=== PATIENT | male | born 1995 ===

== ENCOUNTER 2017-04-19 23:11 | Emergency (ER) | payer SELFPAY ==
--- NOTE | 2017-04-19 23:52 | ED PDOC ---
HPI: SOB/CHF/COPD Time Seen by Provider: 04/19/17 23:15 Chief Complaint (Nursing): Shortness Of Breath Chief Complaint (Provider): Shortness of breath History Per: Patient History/Exam Limitations: no limitations Onset/Duration Of Symptoms: Days Current Symptoms Are (Timing): Still Present Associated Symptoms: denies: Fever, Chills, Chest Pain Additional Complaint(s): 22yo male with no past medical history, presents to ED for evaluation of shortness of breath for the past couple days. Patient states he was drinking heavily last week and yesterday morning, he felt shortness of breath. Patient states he doesn't usually drink heavily so when he had these symptoms he smoked some marijuana to calm himself and went to his PCP Dr. Thompson who gave him steroids. Patient states he does not have a history of asthma and if unsure of how the symptoms presented. States he went to [facility] yesterday for same symptom and was given a shot of Toradol (?) with no resolution of his shortness of breath. Patient reports he was drinking coffee while celebrating Maribel with his family and he felt shortness of breath again and also felt tingling in his fingers He denies any fever, chills, sore throat, vomiting, cough or URI symptoms. Past Medical History Reviewed: Historical Data, Nursing Documentation, Vital Signs Vital Signs: Last Vital Signs Temp 98.2 F 04/20/17 03:36 Pulse 68 04/20/17 03:36 Resp 17 04/20/17 03:36 BP 120/75 04/20/17 03:36 Pulse Ox 99 04/20/17 03:36 - Medical History PMH: No Chronic Diseases - Surgical History Surgical History: No Surg Hx - Family History Family History: States: No Known Family Hx - Home Medications Home Medications: Ambulatory Orders Medication Instructions Recorded Dicyclomine [Bentyl] 10 mg PO QID PRN #10 cap 10/24/15 Ondansetron ODT [Zofran ODT] 4 mg PO Q6 PRN #10 odt 10/24/15 - Allergies Allergies/Adverse Reactions: Allergies Allergy/AdvReac Type Severity Reaction Status Date / Time No Known Allergies Allergy Verified 10/24/15 14:01 Review of Systems ROS Statement: Except As Marked, All Systems Reviewed And Found Negative Constitutional: Negative for: Fever, Chills ENT: Negative for: Throat Pain Cardiovascular: Negative for: Chest Pain Respiratory: Positive for: Shortness of Breath. Negative for: Cough Gastrointestinal: Negative for: Vomiting Physical Exam - Reviewed Nursing Documentation Reviewed: Yes Vital Signs Reviewed: Yes - Physical Exam Appears: Positive for: Uncomfortable Head Exam: Positive for: ATRAUMATIC, NORMAL INSPECTION, NORMOCEPHALIC Skin: Positive for: Normal Color Eye Exam: Positive for: EOMI, PERRL ENT: Positive for: Normal ENT Inspection. Negative for: Pharyngeal Erythema, Tonsillar Exudate, Tonsillar Swelling Neck: Positive for: Supple Cardiovascular/Chest: Positive for: Tachycardia Respiratory: Positive for: Normal Breath Sounds. Negative for: Wheezing, Respiratory Distress Gastrointestinal/Abdominal: Positive for: Normal Exam Extremity: Positive for: Normal ROM Neurologic/Psych: Positive for: Alert, Oriented. Negative for: Motor/Sensory Deficits - Laboratory Results Result Diagrams: 04/20/17 01:24 04/20/17 01:24 - ECG O2 Sat by Pulse Oximetry: 100 (RA) Pulse Ox Interpretation: Normal Medical Decision Making Medical Decision Making: Impression: Shortness of breath (resolved at this time) Plan: -- Labs -- EKG -- Chest x-ray -- UDS Reassess Time: 0326 Labs reviewed, patient positive for marijuana use. Patient reports feeling much better, stable for discharge home. pt likely got tachy from caffeine intake as symptoms started right after caffeine intake. pt also asymptomatic now. pt exam normal otherwise. Scribe Attestation: Documented by Jaci Iglesias acting as a scribe for Jani Harris MD. Provider Attestation: All medical record entries made by the Scribe were at my direction and personally dictated by me. I have reviewed the chart and agree that the record accurately reflects my personal performance of the history, physical exam, medical decision making, and the department course for this patient. I have also personally directed, reviewed, and agree with the discharge instructions and disposition. 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
[2017-04-20 01:30] LABS: BASO % 0.3 % (0.0-2.0); HEMOGLOBIN 16.9 g/dL (12.0-18.0); LYMPH # 1.2 K/uL (1.0-4.3); LYMPH % 9.1 % (20.0-40.0); MEAN CELL VOLUME 88.8 fl (80.0-94.0); MEAN CORPUSCULAR HEMOGLOBIN 28.9 pg (27.0-31.0); MEAN CORPUSCULAR HGB CONC 32.6 g/dL (33.0-37.0); MEAN PLATELET VOLUME 7.9 fl (7.2-11.7); MONO # 1.1 K/uL (0.0-0.8); MONO % 7.7 % (0.0-10.0); NEUT # 11.3 K/uL (1.8-7.0); NEUT % 82.9 % (50.0-75.0); NRBC % 0.5 % (0.0-0.0); PLATELET COUNT 272 K/uL (130-400); RBC 5.85 Mil/uL (4.40-5.90); RED CELL DISTRIBUTION WIDTH 12.3 % (11.5-14.5); WHITE BLOOD COUNT 13.7 K/uL (4.8-10.8)
[2017-04-20 01:58] LABS: ALB/GLOB RATIO 1.5 (1.0-2.1); ALBUMIN 5.3 g/dL (3.5-5.0); ALT/SGPT 33 U/L (21-72); AST/SGOT 28 U/L (17-59); BLOOD UREA NITROGEN 14 mg/dl (9-20); CALCIUM 10.2 mg/dL (8.4-10.2); GFR AFRICAN-AMERICAN > 60; GFR NON-AFRICAN AMERICAN > 60
[2017-04-20 02:28] LABS: ANISOCYTOSIS SLIGHT; BANDS 1 % (0-2); LARGE PLATELETS PRESENT; LYMPHOCYTE 14 % (20-50); MONOCYTE 6 % (0-10); NEUTROPHIL 79 % (42-75); PLATELET ESTIMATE NORMAL (NORMAL); TOTAL CELLS COUNTED 100
[2017-04-20 02:35] LABS: BARBITURATES, UR NEGATIVE (NEGATIVE); BENZODIAZEPINES, UR NEGATIVE (NEGATIVE); OPIATES, UR NEGATIVE (NEGATIVE); PHENCYCLIDINE, UR NEGATIVE (NEGATIVE)
[2017-04-20 04:22] VITALS: BP 120/75; PULSE 68; RESP 17; TEMP 98.2
--- NOTE | 2017-04-20 08:32 | CARD ---
APPROVED REPORT EKG Measurement Heart [id number] CT 150P62 [id number] <Conclusion> Sinus tachycardia Otherwise normal ECG
--- NOTE | 2017-04-20 09:11 | RAD ---
HISTORY: sob COMPARISON: No prior. TECHNIQUE: Chest PA and lateral FINDINGS: LUNGS: No active pulmonary disease. PLEURA: No significant pleural effusion identified. No pneumothorax apparent. CARDIOVASCULAR: Normal. OSSEOUS STRUCTURES: No significant abnormalities. VISUALIZED UPPER ABDOMEN: Normal. OTHER FINDINGS: None. IMPRESSION: No active disease.
[2017-04-21 02:58] VITALS: O2SAT 100
== END 2017-04-20 03:30 | disposition home or self-care (01) ==
LOC: H.ER 23:11
DX: F12.90 Cannabis use, unspecified, uncomplicated (principal); J44.9 Chronic obstructive pulmonary disease, unspecified
CPT/HCPCS: 71020; 80053; 84484; 85025; 93005; 99284; G0480

== ENCOUNTER 2018-03-29 15:58 | Emergency (ER) | payer OTHER ==
[2018-03-29 16:10] VITALS: TEMP 98.4
[2018-03-29 17:26] LABS: BASO % 0.6 % (0.0-2.0); EOS # 0.1 K/uL (0.0-0.7); EOS % 2.3 % (0.0-4.0); HEMOGLOBIN 15.7 g/dL (12.0-18.0); LYMPH # 1.4 K/uL (1.0-4.3); LYMPH % 25.4 % (20.0-40.0); MEAN CELL VOLUME 89.3 fl (80.0-94.0); MEAN CORPUSCULAR HEMOGLOBIN 30.3 pg (27.0-31.0); MEAN CORPUSCULAR HGB CONC 33.9 g/dL (33.0-37.0); MEAN PLATELET VOLUME 7.9 fl (7.2-11.7); MONO # 0.7 K/uL (0.0-0.8); MONO % 13.1 % (0.0-10.0); NEUT # 3.2 K/uL (1.8-7.0); NEUT % 58.6 % (50.0-75.0); RBC 5.17 Mil/uL (4.40-5.90); WHITE BLOOD COUNT 5.4 K/uL (4.8-10.8)
[2018-03-29 17:36] LABS: ALB/GLOB RATIO 1.4 (1.0-2.1); ALBUMIN 4.4 g/dL (3.5-5.0); ALT/SGPT 39 U/L (21-72); AST/SGOT 31 U/L (17-59); BLOOD UREA NITROGEN 12 mg/dl (9-20); CALCIUM 9.4 mg/dL (8.4-10.2); GFR NON-AFRICAN AMERICAN > 60
--- NOTE | 2018-03-29 17:41 | RAD ---
HISTORY: chest pain COMPARISON: Chest x-ray performed 04/20/17 TECHNIQUE: Chest PA and lateral FINDINGS: LUNGS: No focal consolidation. Please note that chest x-ray has limited sensitivity for the detection of pulmonary masses. PLEURA: No significant pleural effusion identified. No definite pneumothorax . CARDIOVASCULAR: Heart size appears within normal limits. No atherosclerotic calcification present. OSSEOUS STRUCTURES: No acute osseous abnormality identified. VISUALIZED UPPER ABDOMEN: Unremarkable. OTHER FINDINGS: None. IMPRESSION: No acute findings.
[2018-03-29 17:48] LABS: BARBITURATES, UR NEGATIVE (NEGATIVE); BENZODIAZEPINES, UR NEGATIVE (NEGATIVE); OPIATES, UR NEGATIVE (NEGATIVE); PHENCYCLIDINE, UR NEGATIVE (NEGATIVE)
--- NOTE | 2018-03-29 18:04 | ED PDOC ---
HPI: Chest Pain Time Seen by Provider: 03/29/18 16:32 Chief Complaint (Nursing): Chest Pain Chief Complaint (Provider): Chest Pain History Per: Patient History/Exam Limitations: no limitations Onset/Duration Of Symptoms: Other (x1 month) Current Symptoms Are (Timing): Still Present Additional Complaint(s): 23 year old male presents to the ED reporting for the past month, he has had constant migratory chest pain. Patient states he has mid sternal chest pain constantly and at times, it gets worse on the right side and on the left side. Right now, pain is localized to the mid sternum. He reports pain radiates to the back and further states he does get SOB with it which is relieved when he "cracks his chest". Denies hemoptysis, history of DVT or PE, recent prolonged immobilization, palpitations, fever, cough, recent illness, leg pain, or recent surgeries. PMD: [place] Past Medical History Reviewed: Historical Data, Nursing Documentation, Vital Signs Vital Signs: Last Vital Signs Temp 98.4 F 03/29/18 16:06 Pulse 64 03/29/18 16:06 Resp 18 03/29/18 16:06 BP 122/79 03/29/18 16:06 Pulse Ox 99 03/29/18 16:06 - Medical History PMH: No Chronic Diseases - Surgical History Surgical History: No Surg Hx - Family History Family History: States: CAD, Diabetes, Hypertension Other Family History: Grandfather of [place] at age of 43 - Social History Drugs: Cannabis, Cocaine (snorted cocaine 3 weeks ago (pain had already begun prior to taking cocaine)) - Home Medications Home Medications: Ambulatory Orders Medication Instructions Recorded Dicyclomine [Bentyl] 10 mg PO QID PRN #10 cap 10/24/15 Ondansetron ODT [Zofran ODT] 4 mg PO Q6 PRN #10 odt 10/24/15 Naproxen [Naprosyn] 500 mg PO BID PRN #10 tab 03/29/18 - Allergies Allergies/Adverse Reactions: Allergies Allergy/AdvReac Type Severity Reaction Status Date / Time No Known Allergies Allergy Verified 10/24/15 14:01 HERON Risk Score for UA/NSTEMI - HERON Risk Score Age > 64: NO 3 or more CAD Risk Factors: NO Known CAD (Stenosis greater than 50%): NO Aspirin use in past 7 days: NO Severe Angina: NO EKG ST changes greater than 0.5mm: NO Positive Cardiac Marker: NO HERON Score: 0 Risk %: 5% Review of Systems ROS Statement: Except As Marked, All Systems Reviewed And Found Negative Constitutional: Negative for: Fever Cardiovascular: Positive for: Chest Pain (radiating to the back). Negative for: Palpitations Respiratory: Positive for: Shortness of Breath. Negative for: Cough, Hemoptysis Musculoskeletal: Negative for: Leg Pain Physical Exam - Reviewed Nursing Documentation Reviewed: Yes Vital Signs Reviewed: Yes - Physical Exam Appears: Positive for: Non-toxic, No Acute Distress Head Exam: Positive for: ATRAUMATIC, NORMOCEPHALIC Skin: Positive for: Normal Color, Warm, Dry Eye Exam: Positive for: Normal appearance ENT: Positive for: Normal ENT Inspection Neck: Positive for: Normal, Painless ROM Cardiovascular/Chest: Positive for: Regular Rate, Rhythm Respiratory: Positive for: Normal Breath Sounds. Negative for: Wheezing, Respiratory Distress Gastrointestinal/Abdominal: Positive for: Normal Exam, Soft. Negative for: Tenderness Back: Positive for: Normal Inspection. Negative for: L CVA Tenderness, R CVA Tenderness Extremity: Positive for: Normal ROM. Negative for: Calf Tenderness (bilate rally) Neurologic/Psych: Positive for: Alert, Oriented. Negative for: Motor/Sensory Deficits - Laboratory Results Result Diagrams: 03/29/18 17:15 03/29/18 17:15 - ECG ECG: Positive for: Interpreted By Nd ECG Rhythm: Positive for: Sinus Bradycardia. Negative for: ST/T Changes O2 Sat by Pulse Oximetry: 99 (RA) Pulse Ox Interpretation: Normal - Radiology X-Ray: Read By Radiologist (CXR) X-Ray Interpretation: No Acute Disease - Progress Re-evaluation Time: 18:30 (Reports no chest pain has improved while in ED de spite no meds being given. Seen laughing and conversing with mother. ) Condition: Re-examined, Improved Medical Decision Making Medical Decision Making: Initial Plan: --ECG --CMP --Drug screen --Troponin stat --CBC --D dimer --Chest X-ray Scribe Attestation: Documented by Dimitris Orozco acting as a scribe for Mikie MYERS Provider Scribe Attestation: All medical record entries made by the Scribe were at my direction and personally dictated by me. I have reviewed the chart and agree that the record accurately reflects my personal performance of the history, physical exam, medical decision making, and the department course for this patient. I have also personally directed, reviewed, and agree with the discharge instructions and disposition. Disposition - Clinical Impression Clinical Impression: Chest wall pain - Patient ED Disposition Is Patient to be Admitted: No - Disposition Referrals: Rasheed Thompson MD [Staff Provider] - Disposition: Routine/Home Disposition Time: 18:41 Condition: STABLE Additional Instructions: FOLLOW UP WITH DR. THOMPSON FOR FURTHER EVALUATION RETURN TO ED IMMEDIATELY IF SYMPTOMS WORSEN [place], thank you for letting us take care of you today. Your provider was Jani Harris MD and you were treated for CHEST PAIN. The emergency medical care you received today was directed at your acute symptoms. If you were prescribed any medication, please fill it and take as directed. It may take several days for your symptoms to resolve. Return to the Emergency Department if your symptoms worsen, do not improve, or if you have any other problems. Please contact your doctor or call one of the physicians/clinics you have been referred to that are listed on the Patient Visit Information form that is included in your discharge packet. Bring any paperwork you were given at discharge with you along with any medications you are taking to your follow up visit. Our treatment cannot replace ongoing medical care by a primary care provider outside of the emergency department. Thank you for allowing the [facility] team to be part of your care today. If you had an X-Ray or CT scan: A Radiologist will review the ED reading if any change in treatment is needed we will contact you. If you had a blood, urine, or wound culture: It will take several days for the results, if any change in treatment is needed we will contact you. If you had an STI test: It will take 48 hours for the results. Please call after 1 week if you have not heard back. Prescriptions: Naproxen [Naprosyn] 500 mg PO BID PRN #10 tab PRN Reason: Pain Instructions: Chest Pain That Is Not Caused by the Heart (DC) Forms: [employer] (Turkmen) Print Language: INDONESIAN
[2018-03-29 19:09] VITALS: BP 121/83; PULSE 68; RESP 16; O2SAT 100
--- NOTE | 2018-03-30 14:27 | CARD ---
APPROVED REPORT Date of service: 03/29/2018 EKG Measurement Heart [id number] DC 154P51 [id number] <Conclusion> Sinus bradycardia Otherwise normal ECG
== END 2018-03-29 19:09 | disposition home or self-care (01) ==
LOC: H.ER 15:58
DX: R07.89 Other chest pain (principal)